=== PATIENT | female | born 1970 | race Caucasian/White ===

== ENCOUNTER → 2025-07-04 | Outpatient (CLI) | payer OTHER, SELFPAY ==
[2025-07-09 00:07] LABS: HPV APTIMA, High Risk Negative (Negative)
== END | disposition home or self-care (01) ==
LOC: LABSPEC 16:26
PROVIDERS: Referring Provider Nurse Practitioner Family; Visit Provider Nurse Practitioner Family
DX: N93.9 Abnormal uterine and vaginal bleeding, unspecified (principal); Z12.4 Encounter for screening for malignant neoplasm of cervix
CPT/HCPCS: 87624; 88175; G0145

== ENCOUNTER → 2025-07-15 | Outpatient (CLI) | payer SELFPAY, OTHER | END | disposition home or self-care (01) | LOC: US 09:01 → OPUS 09:03 | PROVIDERS: PCP Physician Assistant; Referring Provider Nurse Practitioner Family; Visit Provider Nurse Practitioner Family | DX: N85.2 Hypertrophy of uterus (principal); N93.9 Abnormal uterine and vaginal bleeding, unspecified; N84.1 Polyp of cervix uteri | CPT/HCPCS: 76830; 76856 ==

== ENCOUNTER 2025-07-27 16:08 | Outpatient (CLI) | payer OTHER, SELFPAY | END 2025-07-27 23:59 | disposition home or self-care (01) | PROVIDERS: PCP Physician Assistant; Visit Provider Obstetrics & Gynecology | DX: N87.9 Dysplasia of cervix uteri, unspecified (principal); N93.9 Abnormal uterine and vaginal bleeding, unspecified | CPT/HCPCS: 88305 ==